=== PATIENT | male | born 1995 | race Caucasian/White ===

== ENCOUNTER 2018-10-20 11:25 | Emergency (ER) | payer OTHER ==
[~2018-10-20] VITALS: Ht 180.3 cm; Wt 74.8 kg
[~2018-10-20 11:25] MED LIST: CODACE30 PO; IBUP600 PO; PRED10 PO; Prednisone20 MG PO
[2018-10-20] MEDS ORDERED: TRIA15CR3 TOP (12:01)
== END 2018-10-20 12:10 | disposition home or self-care (01) ==
LOC: ER 11:25
DX: L23.7 Allergic contact dermatitis due to plants, except food (principal); Z79.52 Long term (current) use of systemic steroids
CPT/HCPCS: 96372; 99283-25; J3301

== ENCOUNTER 2019-01-26 11:06 | Emergency (ER) | payer OTHER ==
[~2019-01-26] VITALS: Ht 434.3 cm; Wt 72.6 kg
[~2019-01-26 11:06] MED LIST changes: +TRIA15CR3 TOP
[2019-01-26] MEDS ORDERED: TRIA15CR3 TOP (11:23)
== END 2019-01-26 11:47 | disposition home or self-care (01) ==
LOC: ER 11:06
DX: L23.7 Allergic contact dermatitis due to plants, except food (principal)
CPT/HCPCS: 96372; 99282-25; J3301

== ENCOUNTER 2019-08-04 21:30 | Emergency (ER) | payer OTHER ==
[~2019-08-04] VITALS: Ht 180.3 cm; Wt 68.0 kg
== END 2019-08-04 22:56 | disposition home or self-care (01) ==
LOC: ER 21:30
DX: S61.012A Laceration without foreign body of left thumb without damage to nail, initial encounter (principal); F17.200 Nicotine dependence, unspecified, uncomplicated; W26.0XXA Contact with knife, initial encounter
CPT/HCPCS: 12002; 99282-25

== ENCOUNTER 2020-06-26 09:30 | Emergency (ER) | payer OTHER ==
[~2020-06-26] VITALS: Ht 180.3 cm; Wt 72.6 kg
[2020-06-26] MEDS ORDERED: ESCI20 PO (09:41)
[2020-06-26 10:06] LABS: BASOPHILS ABSOLUTE AUTO 0.02 K/mm3 (0.00-0.23); BASOPHILS PERCENT AUTO 0 % (0-2); EOSINOPHILS ABSOLUTE AUTO 0.04 K/mm3 (0.00-0.68); EOSINOPHILS PERCENT AUTO 1 % (0-6); Hematocrit 43.3 % (37.0-53.0); Hemoglobin 14.8 g/dL (13.5-17.5); IMMATURE GRAN ABSOLUTE AUTO 0.02 K/mm3 (0.00-0.10); IMMATURE GRAN PERCENT AUTO 0 % (0-1); LYMPHOCYTES ABSOLUTE AUTO 1.85 K/mm3 (0.84-5.20); LYMPHOCYTES PERCENT AUTO 22 % (21-46); MONOCYTES ABSOLUTE AUTO 0.82 K/mm3 (0.16-1.47); MONOCYTES PERCENT AUTO 10 % (4-13); Mean Corpuscular HGB 29.7 pg (26.0-34.0); Mean Corpuscular HGB Conc 34.2 g/dL (31.5-36.5); Mean Corpuscular Volume 87 fL (80-100); Mean Platelet Volume 10.9 fL (9.1-12.4); NEUTROPHILS ABSOLUTE AUTO 5.84 K/mm3 (1.96-9.15); NEUTROPHILS PERCENT AUTO 68 % (41-73); Platelet Count 207 K/mm3 (150-400); RDW Coefficient Variation 12.2 % (11.7-14.2); RDW Standard Deviation 38.7 fL (35.1-46.3); Red Blood Cell Count 4.99 M/mm3 (4.30-5.90); White Blood Cell Count 8.59 K/mm3 (4.00-11.30)
[2020-06-26 10:51] LABS: Alanine Aminotransfer (ALT/SGP 19 U/L (12-78); Albumin, Blood 4.4 g/dL (3.4-5.0); Albumin/Globulin Ratio 1.3 (0.8-1.8); Alk Phos 66 U/L (50-136); Anion Gap 6 mmol/L (6-16); Aspartate Aminotrans (AST/SGOT 16 U/L (12-37); Bilirubin, Total 1.1 mg/dL (0.1-1.0); Blood Urea Nitrogen 15 mg/dL (8-24); Bun/Creatinine Ratio 17.9 (12.0-20.0); CO2, Blood 26 mmol/L (21-32); Calcium, Blood 9.1 mg/dL (8.5-10.1); Chloride, Blood 107 mmol/L (98-108); Creatinine, Blood 0.84 mg/dL (0.60-1.20); Globulin, Blood 3.3 g/dL (2.2-4.0); Glomerular Filtration Rate >60 (60-); Glucose, Blood 99 mg/dL (70-99); Potassium, Blood 4.3 mmol/L (3.5-5.5); Sodium, Blood 139 mmol/L (136-145); Total Protein, Blood 7.7 g/dL (6.4-8.2)
[2020-06-26] MEDS ORDERED: HYDR1TAB94 PO (13:12)
[2020-06-26] MEDS ORDERED: IBUP400 PO (13:12)
== END 2020-06-26 13:35 | disposition home or self-care (01) ==
LOC: ER 09:30
PROVIDERS: Emergency Medicine
DX: J93.83 Other pneumothorax (principal); R07.89 Other chest pain; F17.290 Nicotine dependence, other tobacco product, uncomplicated; Z79.899 Other long term (current) drug therapy
CPT/HCPCS: 32551; 36415; 71046; 80053; 83690; 85025; 93005; 93010; 96374-59; 96375-59; 99285-25; J1170; J1885; J2060; J2405

== ENCOUNTER 2020-08-29 16:27 | Emergency (ER) | payer OTHER ==
[~2020-08-29] VITALS: Ht 180.3 cm; Wt 72.6 kg
[~2020-08-29 16:27] MED LIST changes: +ESCI20 PO; +HYDR1TAB94 PO; +IBUP400 PO
== END 2020-08-29 17:18 | disposition home or self-care (01) ==
LOC: ER 16:27
DX: L23.7 Allergic contact dermatitis due to plants, except food (principal); F17.200 Nicotine dependence, unspecified, uncomplicated; Z79.899 Other long term (current) drug therapy
CPT/HCPCS: 96372; 99283-25; J3301

== ENCOUNTER 2021-06-17 08:38 | Inpatient (IN) | payer OTHER ==
[~2021-06-17] VITALS: Ht 180.3 cm; Wt 70.3 kg
--- NOTE | 2021-06-17 15:03 | NUR ---
PT CAME IN FROM ED FOR SPONTANEOUS RIGHT SIDED PNEUMOTHORAX. 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 VSS. PT MEDICATED PER EMAR; C/O PAIN ON HIS RIGHT CHEST WALL. PT IS ABLE TO AMBULATE ON HIS OWN. PT WITH MOM IN THE ROOM. PT HAD PNEUMOTHORAX HX IN THE PAST BUT NO OTHER MEEDICAL HX. HE STATED HE CHEW TOBACCO EVERYDAY, REFUSED COUNSELING OR INFORMATION ABOUT QUITTING. BED IS IN THE LOWEST AND CALL LIGHT WITHIN REACH
--- NOTE | 2021-06-17 16:10 | NUR ---
CARE ASSUMED AT THIS TIME. PT IS SITTING IN A CHAIR IN HIS ROOM TALKING WITH HIS S/O. STATES PAIN IS MANAGED WILL CONTINUE TO MONITOR.
--- NOTE | 2021-06-17 16:11 | NUR ---
GIVEN REPORT TO VEE COON
--- NOTE | 2021-06-17 17:44 | NUR ---
INCREASED PAIN AND SOB PT REPORTED INCREASED PAIN AND SOB AT 1705. VSS AT THAT TIME INCLUDING O2 SATURATION OF 100% ON RA. PT PROVIDED WITH FENT PAIN MEDICTION AND REPORTS IMPROVED BREATHING AND PAIN. WILL CONTINUE TO MONITOR.
--- NOTE | 2021-06-17 19:07 | NUR ---
SHIFT SUMMARY PAIN HAS BEEN MANAGED WITH FENTANYL THIS EVENING, NORCO STARTED FOR EXTENDED PAIN MANAGEMENT. NO CHANGES TO REPORT AT THIS TIME. REPORT GIVEN TO ARPAN COON.
--- NOTE | 2021-06-18 04:22 | NUR ---
SHIFT SUMMARY NO ACUTE CHANGES THIS SHIFT. CHEST TUBE TO RIGHT CHEST WALL REMAINS TO WALL SUCTION. LUNG SOUNDS DIMINISHED T/O. NEEDS SBA TO BRP R/T LINES/CORDS. 1 NORCO FOR PAIN PRN. USES CALL LIGHT APPROPRIATELY.
--- NOTE | 2021-06-18 19:10 | NUR ---
SHIFT SUMMARY PT HAS CHEST TUBE IN PLACE AND TO WALL SUCTION. PT IS INDEPENDENT IN THE ROOM AND MANAGING TUBING WELL. PAIN MANAGED WITH PO PAIN MEDICATION. PLAN FOR CHEST XRAY TOMORROW. LUNG SOUNDS REMAIN DIM T/O THE DAY, PT DENIES SHORTNESS OF BREATH. REPORT GIVEN TO ARPAN COON.
--- NOTE | 2021-06-19 04:21 | NUR ---
SHIFT SUMMARY NO ACUTE CHANGES THIS SHIFT. PT HAS DENIED NEEDING PAIN MEDS. CHEST TUBE TO RIGHT CHEST WALL REMAINS INTACT TO WALL SUCTION. LUNGS CLEAR T/O BUT DIMINISHED ON THE RIGHT SIDE. PT INDEP IN ROOM. CALL LIGHT WITHIN REACH.
--- NOTE | 2021-06-19 12:11 | NUR ---
Pt. is sitting up and welcomes my visit. Spouse is present. Pt. is waiting for discharge which could happen at any time. Pt. is pleasant. Establish rapport with the pt. and spouse. No significant concerns. Prayed with pt. Both Pt. and spouse verbalized gratitude for the spiritual care visit.
--- NOTE | 2021-06-19 16:58 | NUR ---
DISCHARGE [id number], THOROVENT DISCONNECTED FROM WATER SEAL AND SEALED WITH PLASTIC ATTACHMENT PER DR. WEATHERS. WENT OVER DISCHARGE INSTRUCTIONS GONE OVER WITH PATIENT. HE PLANS TO FOLLOW UP WITH DR. WEATHERS'S OFFICE FOR AN X-RAY ON THURSDAY AND IN THE OFFICE ON THURSDAY. PT HAS DENIED PAIN DURING SHIFT, DENIED SOB AND HAS BEEN AMBULATING WELL. PT DECLINED ANY FURTHER QUESTIONS OR NEEDS AT THIS TIME.
== END 2021-06-19 17:00 | disposition home or self-care (01) | DRG 201 ==
LOC: ER 08:38 → SURS 14:22
PROVIDERS: ADMIT Surgery
PROC: 0W9900Z Drainage of Right Pleural Cavity with Drainage Device, Open Approach (ICD-10-PCS; principal; 2021-06-17)
DX: J93.83 Other pneumothorax (principal); F17.200 Nicotine dependence, unspecified, uncomplicated; F41.9 Anxiety disorder, unspecified; F32.A Depression, unspecified; Z79.899 Other long term (current) drug therapy; Z98.890 Other specified postprocedural states
CPT/HCPCS: 32551; 71045; 71046; 96374; 96375; 99285-25; A9270; J1650; J2250; J2405; J3010; J7030

== ENCOUNTER 2021-08-28 18:13 | Emergency (ER) | payer OTHER ==
[~2021-08-28] VITALS: Ht 180.3 cm; Wt 72.6 kg
[2021-08-28 18:54] LABS: BASOPHILS ABSOLUTE AUTO 0.03 K/mm3 (0.00-0.23); BASOPHILS PERCENT AUTO 0 % (0-2); EOSINOPHILS ABSOLUTE AUTO 0.01 K/mm3 (0.00-0.68); EOSINOPHILS PERCENT AUTO 0 % (0-6); Hematocrit 43.7 % (37.0-53.0); Hemoglobin 15.2 g/dL (13.5-17.5); IMMATURE GRAN ABSOLUTE AUTO 0.07 K/mm3 (0.00-0.10); IMMATURE GRAN PERCENT AUTO 0 % (0-1); LYMPHOCYTES ABSOLUTE AUTO 1.21 K/mm3 (0.84-5.20); LYMPHOCYTES PERCENT AUTO 8 % (21-46); MONOCYTES ABSOLUTE AUTO 0.81 K/mm3 (0.16-1.47); MONOCYTES PERCENT AUTO 5 % (4-13); Mean Corpuscular HGB 29.9 pg (26.0-34.0); Mean Corpuscular HGB Conc 34.8 g/dL (31.5-36.5); Mean Corpuscular Volume 86 fL (80-100); Mean Platelet Volume 11.5 fL (9.1-12.4); NEUTROPHILS ABSOLUTE AUTO 13.88 K/mm3 (1.96-9.15); NEUTROPHILS PERCENT AUTO 87 % (41-73); Platelet Count 236 K/mm3 (150-400); RDW Standard Deviation 40.7 fL (35.1-46.3); Red Blood Cell Count 5.08 M/mm3 (4.30-5.90); White Blood Cell Count 16.01 K/mm3 (4.00-11.30)
[2021-08-28 19:19] LABS: Albumin, Blood 4.9 g/dL (3.4-5.0); Albumin/Globulin Ratio 1.5 (0.8-1.8); Bilirubin, Total 1.4 mg/dL (0.1-1.0); Bun/Creatinine Ratio 27.7 (12.0-20.0); Creatinine, Blood 0.79 mg/dL (0.60-1.20); Globulin, Blood 3.2 g/dL (2.2-4.0); Potassium, Blood 3.9 mmol/L (3.5-5.5); Total Protein, Blood 8.1 g/dL (6.4-8.2)
[2021-08-28] MEDS ORDERED: OXAYDO5 M1 PO (20:46)
[2021-08-28] MEDS ORDERED: IBUP800 PO (20:46)
== END 2021-08-28 22:07 | disposition home or self-care (01) ==
LOC: ER 18:13
PROVIDERS: Physician Assistant
DX: S20.212A Contusion of left front wall of thorax, initial encounter (principal); S20.312A Abrasion of left front wall of thorax, initial encounter; S40.812A Abrasion of left upper arm, initial encounter; S40.811A Abrasion of right upper arm, initial encounter; F17.290 Nicotine dependence, other tobacco product, uncomplicated; F32.A Depression, unspecified; F41.9 Anxiety disorder, unspecified; V28.4XXA Motorcycle driver injured in noncollision transport accident in traffic accident, initial encounter; Y92.410 Unspecified street and highway as the place of occurrence of the external cause; Z79.899 Other long term (current) drug therapy
CPT/HCPCS: 71101; 80053; 83690; 85025; A9270; J1885

== ENCOUNTER 2021-10-28 10:18 | Emergency (ER) | payer OTHER ==
[~2021-10-28] VITALS: Ht 180.3 cm; Wt 72.6 kg
[~2021-10-28 10:18] MED LIST changes: +IBUP800 PO; +OXAYDO5 M1 PO
[2021-10-28] MEDS ORDERED: CYCL10 PO (10:53)
== END 2021-10-28 11:13 | disposition home or self-care (01) ==
LOC: ER 10:18
DX: M54.50 Low back pain, unspecified (principal); M25.9 Joint disorder, unspecified; F17.290 Nicotine dependence, other tobacco product, uncomplicated; Z91.09 Other allergy status, other than to drugs and biological substances; Z79.899 Other long term (current) drug therapy
CPT/HCPCS: 99283

== ENCOUNTER 2023-05-04 11:11 | Emergency (ER) | payer OTHER ==
[~2023-05-04] VITALS: Ht 180.3 cm; Wt 72.6 kg
[~2023-05-04 11:11] MED LIST changes: +CYCL10 PO
[2023-05-04 11:22] VITALS: BP 130/103
[2023-05-04] MEDS ORDERED: Vistaril25 MG PO (11:27)
== END 2023-05-04 11:33 | disposition home or self-care (01) ==
LOC: ER 11:11
DX: F41.9 Anxiety disorder, unspecified (principal); F32.A Depression, unspecified; F17.290 Nicotine dependence, other tobacco product, uncomplicated; Z73.3 Stress, not elsewhere classified; Z79.899 Other long term (current) drug therapy; Z91.048 Other nonmedicinal substance allergy status
CPT/HCPCS: 99283

== ENCOUNTER 2023-10-27 20:09 | Inpatient (IN) | payer OTHER ==
[~2023-10-27] VITALS: Ht 180.3 cm; Wt 86.8 kg
[~2023-10-27 20:09] MED LIST changes: +Vistaril25 MG PO
[2023-10-27] MEDS ORDERED: FentaNYL Citrate 50 MCG/ML 2 ML Injection IV ONE (20:25)
[2023-10-27] MEDS ORDERED: Lactated Ringer's 1,000 ML IV SCH (20:25)
[2023-10-27] MEDS ORDERED: Diphth,Pertuss(Acell),Tet Vac 0.5 ML VIAL IM ONE (20:30)
[2023-10-27 20:32] LABS: BASOPHILS ABSOLUTE AUTO 0.03 K/mm3 (0.00-0.23); BASOPHILS PERCENT AUTO 0 % (0-2); EOSINOPHILS ABSOLUTE AUTO 0.06 K/mm3 (0.00-0.68); EOSINOPHILS PERCENT AUTO 1 % (0-6); Hemoglobin 14.9 g/dL (13.5-17.5); IMMATURE GRAN ABSOLUTE AUTO 0.07 K/mm3 (0.00-0.10); IMMATURE GRAN PERCENT AUTO 1 % (0-1); LYMPHOCYTES ABSOLUTE AUTO 4.19 K/mm3 (0.84-5.20); LYMPHOCYTES PERCENT AUTO 49 % (21-46); MONOCYTES ABSOLUTE AUTO 0.72 K/mm3 (0.16-1.47); MONOCYTES PERCENT AUTO 8 % (4-13); Mean Corpuscular HGB 30.7 pg (26.0-34.0); Mean Corpuscular HGB Conc 34.7 g/dL (31.5-36.5); Mean Corpuscular Volume 89 fL (80-100); Mean Platelet Volume 10.3 fL (9.1-12.4); NEUTROPHILS ABSOLUTE AUTO 3.48 K/mm3 (1.96-9.15); NEUTROPHILS PERCENT AUTO 41 % (41-73); Platelet Count 227 K/mm3 (150-400); RDW Coefficient Variation 12.6 % (11.7-14.2); RDW Standard Deviation 40.9 fL (35.1-46.3); Red Blood Cell Count 4.85 M/mm3 (4.30-5.90); White Blood Cell Count 8.55 K/mm3 (4.00-11.30)
[2023-10-27 20:44] LABS: Albumin, Blood 4.3 g/dL (3.4-5.0); Albumin/Globulin Ratio 1.3 (0.8-1.8); Bilirubin, Total 0.9 mg/dL (0.1-1.0); Bun/Creatinine Ratio 16.3 (12.0-20.0); Calcium, Blood 8.9 mg/dL (8.5-10.1); Creatinine, Blood 0.98 mg/dL (0.60-1.20); Globulin, Blood 3.3 g/dL (2.2-4.0); Total Protein, Blood 7.6 g/dL (6.4-8.2)
[2023-10-27 20:49] LABS: International Normalized Ratio 0.96; Prothrombin Time Results 10.3 Sec (9.7-11.5)
[2023-10-27] MEDS ORDERED: Methocarbamol 500 MG Tab PO ONE (21:15)
[2023-10-27] MEDS ORDERED: HYDROmorphone HCl/Pf 1MG SYR IV ONE (21:25)
[2023-10-27] MEDS ORDERED: Ondansetron HCl 2 MG / ML 2ML Vial IV PRN (21:35)
[2023-10-27] MEDS ORDERED: HYDROmorphone HCl/Pf 1MG SYR IV PRN (21:40)
[2023-10-27] MEDS ORDERED: Potassium Chloride 20 MEQ TabCR PO ONE (22:00)
[2023-10-27] MEDS ORDERED: HYDROcodone 5-APAP 325 TAB PO PRN (22:30)
[2023-10-27] MEDS ORDERED: Ketorolac Tromethamine 15mg Vial IV PRN (23:20)
[2023-10-27 23:26] VITALS: BP 133/89
[2023-10-28 04:59] VITALS: BP 139/83
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
[2023-10-28 07:14] VITALS: BP 123/85
[2023-10-28] MEDS ORDERED: OXYC5 PO (10:06)
--- NOTE | 2023-10-28 10:18 | NUR ---
DISCHARGE PT AND FAMILY EDUCATED ON AND RECEIVED PRINTED DC INSTRUCTIONS AND VERB AN UNDERSTANDIING. HARD RX FOR OXYCODONE GIVEN TO PT. IVS DC'D PER PROCESS COORDINATOR. PT GATHERED ALL PERSONAL BELONGINGS AND MOTHER AT SIDE TO DRIVE HIM HOME. INCENTIVE SPIROMETER SENT WITH PT.
== END 2023-10-28 10:26 | disposition home or self-care (01) | DRG 200 ==
LOC: ER 20:09 → SURS 21:39
PROVIDERS: Student in an Organized Health Care Education/Training Program; ADMIT Surgery
DX: S27.0XXA Traumatic pneumothorax, initial encounter (principal); S22.41XA Multiple fractures of ribs, right side, initial encounter for closed fracture; F41.9 Anxiety disorder, unspecified; F32.A Depression, unspecified; G89.11 Acute pain due to trauma; R74.01 Elevation of levels of liver transaminase levels; E87.6 Hypokalemia; Z91.048 Other nonmedicinal substance allergy status; V29.99XA Rider (driver) (passenger) of other motorcycle injured in unspecified traffic accident, initial encounter; Z79.899 Other long term (current) drug therapy; Z98.890 Other specified postprocedural states
CPT/HCPCS: 70450; 71045; 71046; 71260; 72125; 72170; 73552; 73562-RT; 73590; 74177; 80053; 83690; 84484; 85025; 85610; 85730; 86850; 86900; 86901; 90471; 90715; 93005; 93010; 94762; 96361; 96374-59; 96375-59; 96376-59; 99285-25; A9270; J1170; J1885; J3010; J7120; Q9967

== ENCOUNTER 2023-11-11 12:21 | Emergency (ER) | payer OTHER ==
[~2023-11-11] VITALS: Ht 180.3 cm; Wt 86.2 kg
[~2023-11-11 12:21] MED LIST changes: +OXYC5 PO; +Percocet 5-3251 EACH PO
[2023-11-11 12:27] VITALS: BP 123/82
== END 2023-11-11 13:27 | disposition home or self-care (01) ==
LOC: ER 12:21
DX: J93.9 Pneumothorax, unspecified (principal); F17.290 Nicotine dependence, other tobacco product, uncomplicated; Z91.048 Other nonmedicinal substance allergy status
CPT/HCPCS: 71046